=== PATIENT | male | born 1975 | race Caucasian/White ===

== ENCOUNTER 2018-02-25 01:56 | Emergency (ER) | payer BC, OTHER ==
[~2018-02-25] VITALS: Ht 165.1 cm; Wt 88.0 kg
[~2018-02-25 01:56] MED LIST: CIPR-255 PO; IBUP-1050 PO; PPTBS PO
[2018-02-25 01:59] VITALS: TEMP 36.5; Ht 165.1 cm; Wt 88.0 kg
[2018-02-25] MEDS ORDERED: KETOROLAC TROMETHAMINE 30 MG/ML VIAL IV STA (02:11)
[2018-02-25] MEDS ORDERED: ONDANSETRON INJ 2 MG/ML 2 ML VIAL IV STA (02:11)
[2018-02-25] MEDS ORDERED: SODIUM CHLORIDE 0.9% 1000ML 1,000 ML IV STA (02:11)
[2018-02-25 02:32] LABS: BASO % 0.5 %; BASO ABS # 0.04 K/uL (0-0.2); EOS % 4.1 %; EOS ABS # 0.35 K/uL (0-0.5); HEMATOCRIT 48.2 % (42-52); HEMOGLOBIN 16.3 g/dL (14.0-18.0); IG# 0.02 K/uL (0.00-0.02); LYMPH % 30.2 %; MEAN CELL VOLUME 91.6 fL (80-100); MEAN CORPUSCULAR HGB CONC 33.8 g/dl (32-36); MEAN PLATELET VOLUME 10.2 fL (7.4-10.4); MONO ABS # 0.69 K/uL (0.11-0.59); NEUT ABS # 4.92 K/uL (1.4-6.5); PLATELET COUNT 183 K/uL (130-400); RED CELL DISTRIBUTION WIDTH SD 43.4 fL (36.4-46.3); WHITE BLOOD COUNT 8.62 K/uL (4.8-10.8)
[2018-02-25 02:57] LABS: ALBUMIN 3.8 gm/dl (3.4-5.0); ALKALINE PHOSPHATASE 74 U/L (45-117); ALT/SGPT 85 U/L (12-78); AST/SGOT 39 U/L (15-37); BLOOD UREA NITROGEN 27 mg/dl (7-18); CALCIUM 8.7 mg/dl (8.5-10.1); CARBON DIOXIDE 24 mmol/L (21-32); CREATININE 0.88 mg/dl (0.60-1.40); GLUCOSE 92 mg/dl (70-99); LIPASE 138 U/L (73-393); SODIUM 138 mmol/L (136-145); TOTAL PROTEIN 7.2 gm/dl (6.4-8.2)
[2018-02-25 03:28] VITALS: O2SAT 95
[2018-02-25] MEDS ORDERED: OPTIRAY 320 IV PRN (04:15)
--- NOTE | 2018-02-25 05:14 | EMERGENCY ROOM VISIT NOTE ---
History First contact with patient: 02:01 Chief Complaint: FLANK PAIN Stated Complaint: RT FLANK PAIN History of Present Illness The patient is a 42 year old male who presents to the Emergency Room with complaints of right lower groin pain and testicular pain for the past few hours. Patient states he woke up to go the bathroom developed pain. Pain 8 out of 10. Nothing makes it better or worse. Patient denies penile pain, flank pain, urinary frequency, urgency or dysuria, nausea, vomiting, fever, chills chest pain or dyspnea. No injury to the area. He has had kidney stones before but this feels different. Review of Systems An 10 system review of systems was completed with positives and pertinent negatives listed in the HPI. Past Medical/Surgical History Medical Problems: (1) Corneal abrasion (2) Kidney stone Family History Diabetes mellitus Heart disease Hypertension Kidney disease Social History Smoking Status: Current Every Day Smoker Alcohol Use: occasionally Drug Use: none Marital Status: Housing Status: lives with family Occupation Status: employed Current/Historical Medications No Active Prescriptions or Reported Meds Physical Exam Vital Signs Date Time Temp Pulse Resp B/P (MAP) Pulse Ox O2 Delivery O2 Flow Rate FiO2 02/25/18 03:31 64 02/25/18 03:29 64 16 133/84 96 Room Air 02/25/18 03:28 95 Room Air 02/25/18 02:04 136/78 02/25/18 01:59 36.5 85 18 95 Room Air Physical Exam VITALS: Vitals are noted on the nurse's note and reviewed by myself. Vital signs stable. GENERAL: Pleasant male who appears in pain, in no acute distress, nondiaphoretic , well-developed well-nourished. SKIN: The skin was without rashes, erythema, edema, or bruising. There is no tenting of the skin. Capillary reflex less than 2 seconds. HEAD: Normocephalic atraumatic. EARS: External auditory canals clear, tympanic membranes pearly isaacs without erythema or effusion bilaterally. EYES: Pupils equal round and reactive to light and accommodation. Conjunctivae without injection, sclerae without icterus. Extraocular movements intact. NOSE: Patent, turbinates without inflammation or discharge. MOUTH: Mucous membranes moist. Pharynx without erythema or exudate. Uvula midline. Airway patent. Tongue does not deviate. NECK: Supple without nuchal rigidity. No lymphadenopathy. No thyromegaly. Cervical spine is nontender. No JVD. HEART: Regular rate and rhythm without murmurs gallops or rubs. LUNGS: Clear to auscultation bilaterally without wheezes, rales or rhonchi. No retractions or accessory muscle use. ABDOMEN: Positive bowel sounds x 4. Normal tympanic percussion. Soft, nontender, without masses or organomegaly. Orozco sign negative. No guarding or rebound tenderness. No CVA tenderness exam: Normal male genitalia, right testicle epididymis tenderness to palpation easily reproducing symptoms, left testicle nontender to palpation. Cremasteric reflex intact bilaterally. Recruiting Coordinator present MUSCULOSKELETAL: No muscle atrophy, erythema, or edema noted. NEURO: Patient was alert and oriented to person place and time. Normal sensation to light and sharp touch. No focal neurological deficits. Medical Decision & Procedures Laboratory Results 02/25/18 02:20 Red Blood Count 5.26, Mean Corpuscular Volume 91.6, Mean Corpuscular Hemoglobin 31.0, Mean Corpuscular Hemoglobin Concent 33.8, Mean Platelet Volume 10.2, Neutrophils (%) (Auto) 57.0, Lymphocytes (%) (Auto) 30.2, Monocytes (%) (Auto) 8.0, Eosinophils (%) (Auto) 4.1, Basophils (%) (Auto) 0.5, Neutrophils # (Auto) 4.92, Lymphocytes # (Auto) 2.60, Monocytes # (Auto) 0.69, Eosinophils # (Auto) 0.35, Basophils # (Auto) 0.04 02/25/18 02:20 Test 02/25/18 02:15 02/25/18 02:20 Urine Color DK YELLOW Urine Appearance CLEAR (CLEAR) Urine pH 5.5 (4.5-7.5) Urine Specific Jay 1.025 (1.000-1.030) Urine Protein NEG (NEG) Urine Glucose (UA) NEG (NEG) Urine Ketones NEG (NEG) Urine Occult Blood 3+ (NEG) Urine Nitrite NEG (NEG) Urine Bilirubin NEG (NEG) Urine Urobilinogen NEG (NEG) Urine Leukocyte Esterase NEG (NEG) Urine WBC (Auto) 0 /hpf (0-5) Urine RBC (Auto) >30 /hpf (0-4) Urine Hyaline Casts (Auto) 1-5 /lpf (0-5) Urine Epithelial Cells (Auto) 0-5 /lpf (0-5) Urine Bacteria (Auto) NEG (NEG) White Blood Count 8.62 K/uL (4.8-10.8) Red Blood Count 5.26 M/uL (4.7-6.1) Hemoglobin 16.3 g/dL (14.0-18.0) Hematocrit 48.2 % (42-52) Mean Corpuscular Volume 91.6 fL (80-100) Mean Corpuscular Hemoglobin 31.0 pg (25-34) Mean Corpuscular Hemoglobin Concent 33.8 g/dl (32-36) Platelet Count 183 K/uL (130-400) Mean Platelet Volume 10.2 fL (7.4-10.4) Neutrophils (%) (Auto) 57.0 % Lymphocytes (%) (Auto) 30.2 % Monocytes (%) (Auto) 8.0 % Eosinophils (%) (Auto) 4.1 % Basophils (%) (Auto) 0.5 % Neutrophils # (Auto) 4.92 K/uL (1.4-6.5) Lymphocytes # (Auto) 2.60 K/uL (1.2-3.4) Monocytes # (Auto) 0.69 K/uL (0.11-0.59) Eosinophils # (Auto) 0.35 K/uL (0-0.5) Basophils # (Auto) 0.04 K/uL (0-0.2) RDW Standard Deviation 43.4 fL (36.4-46.3) RDW Coefficient of Variation 13.0 % (11.5-14.5) Immature Granulocyte % (Auto) 0.2 % Immature Granulocyte # (Auto) 0.02 K/uL (0.00-0.02) Prothrombin Time 10.3 SECONDS (9.0-12.0) Prothromb Time International Ratio 1.0 (0.9-1.1) Activated Partial Thromboplast Time 25.0 SECONDS (21.0-31.0) Partial Thromboplastin Ratio 1.0 Anion Gap 8.0 mmol/L (3-11) Est Creatinine Clear Calc Drug Dose 109.2 ml/min Estimated GFR () 121.1 Estimated GFR (Non- 104.5 BUN/Creatinine Ratio 30.6 (10-20) Calcium Level 8.7 mg/dl (8.5-10.1) Total Bilirubin 0.3 mg/dl (0.2-1) Direct Bilirubin < 0.1 mg/dl (0-0.2) Aspartate Amino Transf (AST/SGOT) 39 U/L (15-37) Alanine Aminotransferase (ALT/SGPT) 85 U/L (12-78) Alkaline Phosphatase 74 U/L (45-117) Total Protein 7.2 gm/dl (6.4-8.2) Albumin 3.8 gm/dl (3.4-5.0) Lipase 138 U/L (73-393) Medications Administered Medications (Trade) Dose Ordered Sig/Laura Route Start Time Stop Time Status Last Admin Dose Admin Ketorolac Tromethamine (Toradol Inj) 10 mg NOW STAT IV 02/25/18 02:11 02/25/18 02:13 DC 02/25/18 02:11 10 MG Ondansetron HCl (Zofran Inj) 4 mg NOW STAT IV 02/25/18 02:11 02/25/18 02:13 DC 02/25/18 02:37 4 MG Sodium Chloride 1,000 ml @ 999 mls/hr Q1H1M STAT IV 02/25/18 02:11 02/25/18 03:11 DC 02/25/18 02:11 999 MLS/HR ED Course Prior records/ancillary studies reviewed. Triage Nursing notes reviewed. Additional history obtained from family The patient's history was concerning for abdominal pain. Differential diagnosis: Etiologies such as epididymitis, torsion, appendicitis, diverticulitis, PUD, biliary pathology, UTI, pancreatitis, obstruction, mesenteric ischemia, aortic pathology, infections, inflammatory bowel disease, renal colic, as well as others were entertained. Physical examination findings: As above. ER treatment provided: Toradol, IV fluids On reassessment the patient felt better. Diagnostics interpreted by me: The labs revealed hematuria. No signs of infection No worrisome leukocytosis. Stable H&H. Mildly elevated LFTs and hepatitis panel was sent. Normal coags. Imaging studies: US SCROTAL: FINDINGS: The testes are symmetrical in size, homogenous in echotexture and demonstrate no focal abnormalities. The right testis measures 5.7 x 2.5 x 3.5 cm. The left testis measures 5.4 x 2.6 x 3.0 cm. Normal symmetric blood flow is demonstrated to left and right testes. The epididymal heads are normal in size.. Small right hydrocele. IMPRESSION: Small right hydrocele. No evidence for testicular torsion or abnormal mass Radiologist: Ori Del Rosario MD US RENAL: FINDINGS: The kidneys are normal in size, with the right kidney measuring 10.4 x 5.4 x 6.0 cm and the left measuring 11.2 x 5.8 x 4.7 cm. There is no evidence of hydronephrosis or solid mass lesions. Small nonobstructing calcification noted the largest measuring 7 mm in the left kidney. No evidence for hydronephrosis the left or right. Bilaterally ureteral jets are demonstrated in the bladder. IMPRESSION: Nonobstructing left renal calculi without evidence of hydronephrosis. Bilateral ureteral jets demonstrated in the bladder Radiologist: Ori Del Rosario MD CT ABDOMEN & PELVIS With Contrast: FINDINGS: The lung bases are clear. There is a large hiatal hernia. The liver and spleen are normal in size and free of mass lesions. The gallbladder, bile ducts and pancreas are normal. The adrenal gland are unremarkable. The kidneys are normal in size and contour. No lesion or hydronephrosis. The appendix is unremarkable, as is the rest of the GI tract. Aorta is normal caliber. No adenopathy or extraluminal air. The osseous structures are normal IMPRESSION: Large hiatal hernia. No acute inflammatory process demonstrated in the abdomen or pelvis Radiologist: Ori Del Rosario MD Exam and history seem consistent with right lower quadrant abdominal pain that has now resolved. Patient had no acute findings on CT imaging. He was informed of the hiatal hernia and a hydrocele. He was informed of his hematuria and advised follow-up family care doctor for referral to urology. He states he chronically has this. He was informed he is at increased risk for bladder cancer as he is a smoker and was strongly encouraged to quit smoking. Patient is stable H&H. No leukocytosis. Mildly elevated LFTs and hepatitis panel was sent. Patient states he was drinking more on holiday this past week but does not normally drink alcohol. Most likely the mild bump is from this. Patient was advised to return to the ER immediately for abdominal pain, fevers, vomiting, genitalia problems, worsening signs or symptoms or as needed. By the evaluation outlined above emergent etiologies such as appendicitis, diverticulitis, PUD, biliary pathology, UTI, pancreatitis, obstruction, mesenteric ischemia, aortic pathology, infections, inflammatory bowel disease, renal colic, as well as others were deemed relatively unlikely. The pt informed about the findings as listed above. All questions were answered and pleased with the treatment. Return instructions were outlined and the patient was discharged in stable condition. Referral: The patient was referred back to their primary care physician for follow-up in 2 to 3 days for a recheck of the current condition. Case reviewed with my attending The chart was completed utilizing [employer] Speech voice recognition software. Grammatical errors, random word insertions, pronoun errors, and incomplete sentences are an occassional consequence of this system due to software limitations, ambient noise, and hardware issues. Any formal questions or concerns about the content, text, or information contained within the body of this dictation should be directly addressed to the physician supply chain assistant for clarification. Medical Decision As above Medication Reconcilliation Current Medication List: was personally reviewed by me Blood Pressure Screening Patient's blood pressure: Normal blood pressure Impression Primary Impression: Right lower quadrant pain Additional Impressions: Hematuria Elevated LFTs Departure Information Dispostion Home / Self-Care Condition GOOD Prescriptions No Active Prescriptions or Reported Meds Referrals No Doctor, Assigned (PCP) Patient Instructions [facility] Additional Instructions Recommend further evaluation for your painless hematuria on urinalysis. Recommend that you quit smoking. Ibuprofen(Motrin, Advil) may be used for fever or pain. Use 600mg every six hours as needed. Take with food. Avoid using more than 2400mg in a 24 hour period. Do not use 2400mg per day for more than three consecutive days without physician direction. Prolonged inappropriate use can lead to stomach upset or ulcers. (AND/OR) Acetaminophen(Tylenol) may be used for fever or pain. Use 1000mg every six hours as needed. Avoid using more than 3000mg in a 24 hour period. Rest and drink plenty of fluids as tolerated. Continue current medications. Avoid strenuous activities and anything that worsens your pain. Resume normal activities once your symptoms resolve. Return to the ER immediately for worsening or persistent abdominal pain, vomiting, fevers, chest pains, difficulty breathing, worsening of your condition , or as needed. Follow up with your primary physician in 2-3 days for a recheck of your current condition. Problem Qualifiers
[2018-02-25 05:26] VITALS: BP 109/73; PULSE 70; O2SAT 95
--- NOTE | 2018-02-25 06:50 | DIAGNOSTIC IMAGING REPORT ---
(BERNICE/BLAD)RETROPERITON COMP HISTORY: 42 years-old Male rlq/testicle pain, ? epidy/stone/infx/torsion acute right flank and right lower quadrant abdominal pain COMPARISON: CT abdomen and pelvis of same day, CT abdomen and pelvis 06/09/2016 TECHNIQUE: Multiple real-time sonographic images of the kidneys and bladder were obtained assessing grayscale appearance and color flow. FINDINGS: Right kidney measures 10.4 x 5.4 x 6.0 cm and is unremarkable without renal calculi, hydronephrosis or suspicious mass lesion. Mildly increased echogenicity of the liver may reflect fatty infiltration. Left kidney measures 11.2 x 5.8 x 4.7 cm. The punctate nonobstructing calculus of the inferior pole left kidney seen on CT abdomen and pelvis of same day is not definitively seen by ultrasound. No definite left-sided renal calculi, hydronephrosis or focal mass lesion. The bladder is unremarkable with bilateral ureteral jets noted. IMPRESSION: 1. Punctate nonobstructing calculus of the inferior pole left kidney seen on CT abdomen and pelvis of same day is not definitively seen by ultrasound. 2. No definite renal calculi or obstructive uropathy. 3. Unremarkable sonographic appearance of the urinary bladder. The above report was generated using voice recognition software. It may contain grammatical, syntax or spelling errors. Electronically signed by: Hema Felipe M.D. 02/25/2018 6:48 AM Dictated Date/Time: 02/25/2018 6:44 AM
--- NOTE | 2018-02-25 06:52 | DIAGNOSTIC IMAGING REPORT ---
ABD/PELVIS IV CONTRAST ONLY CT DOSE: 583.37 mGy.cm HISTORY: Pain. rlq pain TECHNIQUE: Multiaxial CT images of the abdomen and pelvis were performed following the use of intravenous contrast. A dose lowering technique was utilized adhering to the principles of ALARA. COMPARISON STUDY: 06/09/2016 FINDINGS: Lung bases are clear. Liver spleen and pancreas are unremarkable. Kidneys and 8 uniformly. Bowel pattern is nonobstructive throughout. Normal appendix. Hiatal hernia. Scattered colonic diverticuli with no evidence for reticularis. IMPRESSION: 1. Chronic colonic diverticulosis with no evidence for acute diverticulitis. 2. Otherwise negative study. The above report was generated using voice recognition software. It may contain grammatical, syntax or spelling errors. Electronically signed by: Farhat Hall M.D. 02/25/2018 6:50 AM Dictated Date/Time: 02/25/2018 6:47 AM
--- NOTE | 2018-02-25 06:56 | DIAGNOSTIC IMAGING REPORT ---
(TESTICULAR) SCROTUM-CONT CLINICAL HISTORY: 42 years-old Male with rlq/testicle pain, ? epidy/stone/infx/torsion. Acute right lower quadrant and right scrotal pain COMPARISON STUDY: CT abdomen and pelvis of same day TECHNIQUE: Real-time, grayscale, and color Doppler sonography of the testes and scrotum is performed. Images are reviewed in the transverse and longitudinal planes. FINDINGS: RIGHT HEMISCROTUM: The right testis measures 5.7 x 2.5 x 3.5 cm and the parenchyma appears unremarkable. No intratesticular mass is seen. Normal-appearing arterial inflow is present within the right testicle. The right epididymal head appears normal. Trace right-sided hydrocele. No varicocele. LEFT HEMISCROTUM: The left testis measures 5.4 x 2.6 x 3.0 cm and the parenchyma appears unremarkable. No intratesticular mass is seen. Normal-appearing arterial inflow is present within the left testicle. The left epididymal head appears normal. No varicocele or hydrocele is identified. IMPRESSION: 1. Unremarkable sonographic appearance of the bilateral testicles and epididymides. 2. No evidence of testicular torsion or mass. 3. Trace right hydrocele. The above report was generated using voice recognition software. It may contain grammatical, syntax or spelling errors. Electronically signed by: Hema Felipe M.D. 02/25/2018 6:55 AM Dictated Date/Time: 02/25/2018 6:53 AM
[2018-02-25 07:38] LABS: HEP C IGG 13 YRS+OLDER_RFLX NEG (NEG)
[2018-02-26 09:55] LABS: HEPATITIS A IGM TC 51813E NON-REACTIVE (NON-REACTIVE); HEPATITIS B CORE IGM TC51854R NON-REACTIVE (NON-REACTIVE)
== END 2018-02-25 05:30 | disposition home or self-care (01) ==
LOC: C.EDB 01:57 → C.EDA 05:30
DX: R10.31 Right lower quadrant pain (principal); R31.9 Hematuria, unspecified; R94.5 Abnormal results of liver function studies; N50.811 Right testicular pain; F17.200 Nicotine dependence, unspecified, uncomplicated